=== PATIENT | female | born 1945 | race Caucasian/White ===

== ENCOUNTER 2019-04-28 09:49 | Outpatient (CLI) | payer MEDICARE | END 2019-04-28 23:59 | disposition home or self-care (01) | LOC: CFH 09:49 | PROVIDERS: ATTEND Registered Nurse | DX: J43.9 Emphysema, unspecified (principal); R91.8 Other nonspecific abnormal finding of lung field; K44.9 Diaphragmatic hernia without obstruction or gangrene; I25.10 Atherosclerotic heart disease of native coronary artery without angina pectoris; M84.48XA Pathological fracture, other site, initial encounter for fracture; M47.814 Spondylosis without myelopathy or radiculopathy, thoracic region | CPT/HCPCS: 71250 ==

== ENCOUNTER 2019-10-17 12:34 | Outpatient (CLI) | payer MEDICARE ==
[~2019-10-17 12:34] MED LIST: ASPI81TA45 PO; CLOP75TA PO; LEVO100T5 PO; LISI40TA PO; SIMV20TA19 PO; TRIA1CAP3 PO
== END 2019-10-17 23:59 | disposition home or self-care (01) ==
LOC: CFH 12:34
PROVIDERS: ATTEND Radiology Radiation Oncology
DX: C34.12 Malignant neoplasm of upper lobe, left bronchus or lung (principal); J98.4 Other disorders of lung
CPT/HCPCS: 71250

== ENCOUNTER 2019-10-19 07:01 | Outpatient (CLI) | payer MEDICARE ==
[~2019-10-19 07:01] MED LIST changes: -SIMV20TA19 PO; +SIMV20TA3 PO
== END 2019-10-19 23:59 | disposition home or self-care (01) ==
LOC: ROC 07:01
PROVIDERS: ATTEND Radiology Radiation Oncology
DX: C34.12 Malignant neoplasm of upper lobe, left bronchus or lung (principal); Z68.39 Body mass index [BMI] 39.0-39.9, adult
CPT/HCPCS: 99213; G0463

== ENCOUNTER 2020-01-16 10:20 | Outpatient (CLI) | payer MEDICARE ==
[~2020-01-16 10:20] MED LIST changes: +SIMV20TA19 PO; -SIMV20TA3 PO
[2020-01-16] MEDS ORDERED: OMNIPAQUE 350 MG/ML, 100ML BOTTLE ONE (14:53)
== END 2020-01-16 23:59 | disposition home or self-care (01) ==
LOC: CFH 10:20
PROVIDERS: ATTEND Radiology Radiation Oncology
DX: C34.12 Malignant neoplasm of upper lobe, left bronchus or lung (principal); J43.2 Centrilobular emphysema; J47.9 Bronchiectasis, uncomplicated; R91.8 Other nonspecific abnormal finding of lung field; K57.30 Diverticulosis of large intestine without perforation or abscess without bleeding; I70.0 Atherosclerosis of aorta; M47.815 Spondylosis without myelopathy or radiculopathy, thoracolumbar region
CPT/HCPCS: 71260; 74177; Q9967

== ENCOUNTER → 2020-04-15 | Outpatient (CLI) | payer MEDICARE ==
[~2020-04-15] MED LIST changes: +OMNIPAQUE 350 MG/ML, 75ML BOTTLE ONE
== END | disposition home or self-care (01) ==
LOC: CFH 11:40
PROVIDERS: ATTEND Radiology Radiation Oncology
DX: C34.12 Malignant neoplasm of upper lobe, left bronchus or lung (principal); R91.8 Other nonspecific abnormal finding of lung field
CPT/HCPCS: 71260; 82565; Q9967

== ENCOUNTER → 2020-04-24 | Outpatient (CLI) | payer MEDICARE ==
[~2020-04-24] MED LIST changes: -OMNIPAQUE 350 MG/ML, 75ML BOTTLE ONE
== END | disposition home or self-care (01) ==
LOC: ROC 07:06
PROVIDERS: ATTEND Radiology Radiation Oncology
DX: C34.12 Malignant neoplasm of upper lobe, left bronchus or lung (principal)
CPT/HCPCS: 99213; G0463

== ENCOUNTER → 2020-09-16 | Outpatient (CLI) | payer MEDICARE | END | disposition home or self-care (01) | LOC: CFH 10:07 | PROVIDERS: ATTEND Radiology Radiation Oncology | DX: C34.12 Malignant neoplasm of upper lobe, left bronchus or lung (principal); J47.9 Bronchiectasis, uncomplicated; J43.9 Emphysema, unspecified; I70.0 Atherosclerosis of aorta; I77.810 Thoracic aortic ectasia; M51.34 Other intervertebral disc degeneration, thoracic region; R91.8 Other nonspecific abnormal finding of lung field; J98.4 Other disorders of lung | CPT/HCPCS: 71250 ==

== ENCOUNTER → 2020-09-19 | Outpatient (CLI) | payer MEDICARE | END | disposition home or self-care (01) | LOC: ROC 08:01 | PROVIDERS: ATTEND Radiology Radiation Oncology | DX: Z08 Encounter for follow-up examination after completed treatment for malignant neoplasm (principal); Z85.118 Personal history of other malignant neoplasm of bronchus and lung | CPT/HCPCS: 99213; G0463 ==

== ENCOUNTER → 2020-10-09 | Outpatient (CLI) | payer MEDICARE | END | disposition home or self-care (01) | LOC: CFH 14:02 | PROVIDERS: ATTEND Internal Medicine | DX: N63.10 Unspecified lump in the right breast, unspecified quadrant (principal); N64.9 Disorder of breast, unspecified | CPT/HCPCS: 76642; 77065 ==

== ENCOUNTER 2020-10-31 07:34 | Outpatient (CLI) | payer MEDICARE ==
[2020-10-31] MEDS ORDERED: LIDOCAINE 1%, 20ML ONE (08:31)
[2020-10-31] MEDS ORDERED: LIDOCAINE 1%-EPI 1:100K, 20ML ONE (08:31)
[2020-10-31] MEDS ORDERED: SODIUM BICARBONATE 4.2%, 5ML ONE (08:31)
== END 2020-10-31 23:59 | disposition home or self-care (01) ==
LOC: CFH 07:34
PROVIDERS: ATTEND Internal Medicine
DX: N63.13 Unspecified lump in the right breast, lower outer quadrant (principal); C50.511 Malignant neoplasm of lower-outer quadrant of right female breast; Z17.0 Estrogen receptor positive status [ER+]
CPT/HCPCS: 19083; 88305; 88360; 77065

== ENCOUNTER 2020-12-06 09:48 | Outpatient (CLI) | payer MEDICARE ==
[~2020-12-06 09:48] MED LIST changes: -LISI40TA PO; +LISI40TA9 PO
[2020-12-06] MEDS ORDERED: ASPI81TA45 PO (10:11)
[2020-12-06] MEDS ORDERED: UBID200C35 PO (10:11)
[2020-12-06] MEDS ORDERED: CHOL10003 PO (10:11)
[2020-12-06] MEDS ORDERED: LEVO100T5 PO (10:43)
[2020-12-06] MEDS ORDERED: SIMV20TA19 PO (10:43)
[2020-12-06] MEDS ORDERED: TRIA1TAB3 PO (10:43)
[2020-12-06] MEDS ORDERED: LISI-167 PO (10:43)
[2020-12-06 11:07] LABS: ALANINE AMINOTRANSFERASE 31 U/L (12-78); ALBUMIN 3.9 g/dL (3.4-5.0); ANION GAP 6 mmol/L (5-15); CALCIUM 9.6 mg/dL (8.5-10.1); CHLORIDE 109 mmol/L (98-107); CREATININE 1.61 mg/dL (0.55-1.02)
[2020-12-06 11:09] LABS: ALKALINE PHOSPHATASE 111 U/L (45-117); BILIRUBIN,TOTAL 0.5 mg/dL (0.2-1.0); TOTAL PROTEIN 7.6 g/dL (6.4-8.2)
== END 2020-12-06 23:59 | disposition home or self-care (01) ==
LOC: STAR 09:48
PROVIDERS: ATTEND Obstetrics & Gynecology
DX: Z01.812 Encounter for preprocedural laboratory examination (principal); Z20.822 Contact with and (suspected) exposure to COVID-19; C50.411 Malignant neoplasm of upper-outer quadrant of right female breast; R00.1 Bradycardia, unspecified
CPT/HCPCS: 80053; 87635; 93005

== ENCOUNTER 2020-12-12 07:34 | Day surgery (SDC) | payer MEDICARE ==
[~2020-12-12] VITALS: Ht 157.5 cm; Wt 98.8 kg
[~2020-12-12 07:34] MED LIST changes: +CHOL10003 PO; +LISI-167 PO; +TRIA1TAB3 PO; +UBID200C35 PO
[2020-12-12] MEDS ORDERED: ISOSULFAN BLUE 10 MG/ML, 5ML IV ONE (07:38)
[2020-12-12] MEDS ORDERED: EPINEPHRINE 1 MG/ML, 1ML ONE (07:38)
[2020-12-12] MEDS ORDERED: BUPIVACAINE/PF 0.5% ONE (07:38)
[2020-12-12] MEDS ORDERED: SODIUM BICARBONATE 4.2%, 5ML ONE (08:00)
[2020-12-12] MEDS ORDERED: LIDOCAINE 1%, 20ML ONE (08:00)
[2020-12-12] MEDS ORDERED: LACTATED RINGERS 1,000 ML IV SCH (09:30)
[2020-12-12] MEDS ORDERED: CHLORHEXIDINE 15 ML UDC MM ONE (09:30)
[2020-12-12 09:43] VITALS: BP 126/66
[2020-12-12] MEDS ORDERED: FENTANYL PF 250 MCG/5ML ONE (09:47)
[2020-12-12] MEDS ORDERED: NEOSTIGMINE 1 MG/ML, 10ML ONE (09:48)
[2020-12-12] MEDS ORDERED: ONDANSETRON 2MG/ML, 2ML ONE (09:48)
[2020-12-12] MEDS ORDERED: GLYCOPYRROLATE 0.2MG/1ML, 5ML ONE (09:48)
[2020-12-12] MEDS ORDERED: CEFAZOLIN 1,000 MG ONE (09:48)
[2020-12-12] MEDS ORDERED: ROCURONIUM 10MG/ML,5ML ONE (09:48)
[2020-12-12] MEDS ORDERED: PROPOFOL 10 MG/ML, 20ML ONE (09:48)
[2020-12-12] MEDS ORDERED: OXYcodone 5 MG/5 ML ORAL.SOL UDC PO PRN (10:30)
[2020-12-12] MEDS ORDERED: morphine SULFATE 10 MG/ML, 1ML IVPush PRN (10:30)
[2020-12-12] MEDS ORDERED: HYDROmorphone 1 MG/ML, 1ML INJ IVPush PRN (10:30)
[2020-12-12] MEDS ORDERED: MEPERIDINE/PF 25MG/0.5ML IVPush PRN (10:30)
[2020-12-12] MEDS ORDERED: hydrALAzine 20 MG/ML, 1ML IV PRN (10:30)
[2020-12-12] MEDS ORDERED: LABETALOL 5MG/ML, 20ML IV PRN (10:30)
[2020-12-12] MEDS ORDERED: PROMETHAZINE 25 MG/ML, 1ML IVPush PRN (10:30)
[2020-12-12] MEDS ORDERED: ACETAMINOPHEN 325 MG TABLET PO PRN (10:30)
[2020-12-12] MEDS ORDERED: FENTANYL PF 100 MCG/2ML IV PRN (10:30)
[2020-12-12] MEDS ORDERED: HALOPERIDOL 5 MG/ML IV PRN (10:30)
[2020-12-12] MEDS ORDERED: PHENYLEPHRINE 10 MG/ML ONE (10:40)
[2020-12-12] MEDS ORDERED: ONDA4TAB7 PO (12:12)
[2020-12-12] MEDS ORDERED: HYDR-1067 PO (12:12)
== END 2020-12-12 14:00 | disposition home or self-care (01) ==
LOC: CFH 07:34 → EDSTATUS 11:00 → OUT 14:00
PROVIDERS: ATTEND Surgery
DX: C50.511 Malignant neoplasm of lower-outer quadrant of right female breast (principal); I12.9 Hypertensive chronic kidney disease with stage 1 through stage 4 chronic kidney disease, or unspecified chronic kidney disease; N18.9 Chronic kidney disease, unspecified; E03.9 Hypothyroidism, unspecified; E78.5 Hyperlipidemia, unspecified; J44.9 Chronic obstructive pulmonary disease, unspecified; E66.9 Obesity, unspecified; Z17.0 Estrogen receptor positive status [ER+]; Z68.39 Body mass index [BMI] 39.0-39.9, adult; Z79.82 Long term (current) use of aspirin; Z79.890 Hormone replacement therapy; Z79.899 Other long term (current) drug therapy; Z85.118 Personal history of other malignant neoplasm of bronchus and lung; Z87.891 Personal history of nicotine dependence; Z90.2 Acquired absence of lung [part of]; Z83.6 Family history of other diseases of the respiratory system; Z82.3 Family history of stroke
CPT/HCPCS: 19285; 19301; 38525; 38792; 76098; 77065; 88307; 88329; 88333; A9541; J0171; J0690; J2370; J2405; J2704; J2710; J3010; J7120

== ENCOUNTER → 2020-12-26 | Outpatient (CLI) | payer MEDICARE ==
[~2020-12-26] MED LIST changes: +HYDR-1067 PO; +ONDA4TAB7 PO
== END | disposition home or self-care (01) ==
LOC: ROC 08:52
PROVIDERS: ATTEND Radiology Radiation Oncology
DX: C50.511 Malignant neoplasm of lower-outer quadrant of right female breast (principal); I12.9 Hypertensive chronic kidney disease with stage 1 through stage 4 chronic kidney disease, or unspecified chronic kidney disease; N18.30 Chronic kidney disease, stage 3 unspecified; J44.9 Chronic obstructive pulmonary disease, unspecified; E78.5 Hyperlipidemia, unspecified; E03.9 Hypothyroidism, unspecified; E66.9 Obesity, unspecified; Z68.39 Body mass index [BMI] 39.0-39.9, adult; Z79.899 Other long term (current) drug therapy; Z17.0 Estrogen receptor positive status [ER+]; Z79.82 Long term (current) use of aspirin
CPT/HCPCS: 99214; G0463

== ENCOUNTER → 2021-03-05 | Outpatient (CLI) | payer MEDICARE ==
[~2021-03-05] MED LIST changes: -HYDR-1067 PO; +HYDR-2214 PO
== END | disposition home or self-care (01) ==
LOC: ROC 07:41
PROVIDERS: ATTEND Radiology Radiation Oncology
DX: Z08 Encounter for follow-up examination after completed treatment for malignant neoplasm (principal); Z85.3 Personal history of malignant neoplasm of breast; Z85.118 Personal history of other malignant neoplasm of bronchus and lung; I12.9 Hypertensive chronic kidney disease with stage 1 through stage 4 chronic kidney disease, or unspecified chronic kidney disease; N18.30 Chronic kidney disease, stage 3 unspecified; J44.9 Chronic obstructive pulmonary disease, unspecified; E78.5 Hyperlipidemia, unspecified; E03.9 Hypothyroidism, unspecified; Z17.0 Estrogen receptor positive status [ER+]; Z79.82 Long term (current) use of aspirin; Z79.899 Other long term (current) drug therapy
CPT/HCPCS: G2251

== ENCOUNTER → 2021-03-18 | Outpatient (CLI) | payer MEDICARE | END | disposition home or self-care (01) | LOC: CFH 12:11 | PROVIDERS: ATTEND Radiology Radiation Oncology | DX: C34.12 Malignant neoplasm of upper lobe, left bronchus or lung (principal); R91.8 Other nonspecific abnormal finding of lung field | CPT/HCPCS: 71250 ==

== ENCOUNTER → 2021-03-20 | Outpatient (CLI) | payer MEDICARE | END | disposition home or self-care (01) | LOC: ROC 09:25 | PROVIDERS: ATTEND Radiology Radiation Oncology | DX: Z08 Encounter for follow-up examination after completed treatment for malignant neoplasm (principal); Z85.3 Personal history of malignant neoplasm of breast; Z85.118 Personal history of other malignant neoplasm of bronchus and lung; I12.9 Hypertensive chronic kidney disease with stage 1 through stage 4 chronic kidney disease, or unspecified chronic kidney disease; N18.30 Chronic kidney disease, stage 3 unspecified; J44.9 Chronic obstructive pulmonary disease, unspecified; E78.5 Hyperlipidemia, unspecified; Z17.0 Estrogen receptor positive status [ER+]; Z79.82 Long term (current) use of aspirin; Z79.899 Other long term (current) drug therapy | CPT/HCPCS: 99442 ==